=== PATIENT | female | born 1955 | race Caucasian/White ===

== ENCOUNTER 2019-09-07 14:50 | Emergency (ER) | payer BC ==
[~2019-09-07] VITALS: Ht 162.6 cm; Wt 89.4 kg
[~2019-09-07 14:50] MED LIST: IBUPROFEN PRN
[2019-09-07 15:06] VITALS: BP 147/72
[2019-09-07 15:58] LABS: BASOPHILS # (AUTO) 0.1 K/uL (0.00-0.22); BASOPHILS % (AUTO) 0.7 % (0.0-2.0); EOSINOPHILS # (AUTO) 0.2 K/uL (0-0.4); EOSINOPHILS % (AUTO) 2.3 % (0.0-4.0); HEMATOCRIT 39.8 % (36-48); HEMOGLOBIN 13.2 g/dL (12.0-16.0); LYMPHOCYTES % (AUTO) 38.2 % (20.5-51.1); MEAN CORPUSCULAR HEMOGLOBIN 29 pg (27-31); MEAN CORPUSCULAR HGB CONC 33 g/dL (33-37); MEAN CORPUSCULAR VOLUME 88.4 fL (80-94); MONOCYTES # (AUTO) 0.5 K/uL (0.8-1.0); MONOCYTES % (AUTO) 5.9 % (1.7-9.3); NEUTROPHILS # (AUTO) 4.2 K/uL (1.8-7.7); NEUTROPHILS % (AUTO) 52.9 % (42.2-75.2); PLATELET COUNT (AUTO) 259 K/uL (140-450); RED BLOOD CELL COUNT(AUTO) 4.51 MIL/uL (4.20-5.40); RED CELL DISTRIBUTION WIDTH 13.8 % (11.6-13.7)
[2019-09-07 16:10] LABS: ANION GAP 11.6 (8-16); CARBON DIOXIDE 28.8 mmol/L (21-32); CREATININE 0.5 mg/dL (0.6-1.3); POTASSIUM 3.4 mmol/L (3.5-5.1)
--- NOTE | 2019-09-07 16:14 | NUR ---
PATIENT AMBULATED TO BED 6
[2019-09-07 16:17] LABS: ALBUMIN 4.1 g/dL (3.4-5.0); TOTAL BILIRUBIN 0.6 mg/dL (0.0-1.0)
[2019-09-07] MEDS ORDERED: ONDANSETRON 4 MG ODT PO ONE (16:35)
[2019-09-07] MEDS ORDERED: HYDROcodone/APAP 5/325 MG 1 TAB TAB PO ONE (16:35)
--- NOTE | 2019-09-07 17:01 | NUR ---
Patient taken to CT scan via wheelchair by tech.
[2019-09-07 19:02] VITALS: BP 116/73
--- NOTE | 2019-09-07 19:02 | NUR ---
Patient discharged with v/s stable. Written and verbal after care instructions given and explained. Patient alert, oriented and verbalized understanding of instructions. Ambulatory with steady gait. All questions addressed prior to discharge. ID band removed. Patient advised to follow up with PMD. Rx of [place] and Zofran ODT given. Patient educated on indication of medication including possible reaction and side effects. Opportunity to ask questions provided and answered.
[2019-09-07 20:39] LABS: APPEARANCE,URINE HAZY (CLEAR); BILIRUBIN,URINE NEGATIVE (NEGATIVE); BLOOD, URINE NEGATIVE (NEGATIVE); COLOR,URINE YELLOW (YELLOW); LEUKOCYTE ESTERASE ,URINE TRACE (NEGATIVE); NITRITE, URINE POSITIVE (NEGATIVE); PH,URINE 6.5 (5.0-9.0); UGLUCOSE NEGATIVE (NEGATIVE)
[2019-09-07 21:02] LABS: RBC,URINE NONE SEEN /HPF (0-5); WBC,URINE 0-5 /HPF (0-5)
== END 2019-09-07 19:02 | disposition home or self-care (01) ==
LOC: MED 14:50
DX: R10.84 Generalized abdominal pain (principal); Z90.49 Acquired absence of other specified parts of digestive tract; Z90.710 Acquired absence of both cervix and uterus; Z79.1 Long term (current) use of non-steroidal anti-inflammatories (NSAID)
CPT/HCPCS: 36415; 74176; 80053; 81001; 83690; 85025; 87086; 93005; 99284; Q0162

== ENCOUNTER 2019-09-21 06:28 | Emergency (ER) | payer BC ==
[~2019-09-21] VITALS: Ht 162.6 cm; Wt 86.2 kg
[2019-09-21 06:38] VITALS: BP 122/57
[2019-09-21] MEDS ORDERED: MAGNESIUM CITRATE 300 ML BTL PO ONE (06:40)
--- NOTE | 2019-09-21 06:43 | NUR ---
63 Y/O FEMALE C/O RECTAL PAIN. PT STATES HER LAST NORMAL BM WAS SATURDAY AFTERNOON. HARD, SMALL BM YESTERDAY WHICH CAUSED INCREASED RECTAL PAIN. PT C/O 10/10 SHARP INTERMITTENT PAIN, INCREASED WHEN TRYING TO DEFICATE. PT STATES SHE TOOK STOOL SOFTENER AT 2100 WITH NO BOWEL MOVEMENT. PT LAYING IN BED POSITIONED FOR COMFORT. BED LOCKED AND IN LOW POSITION. VSS. MEDHX; DM, HLD, ANXIETY ALLERGIES: NKA
[2019-09-21] MEDS ORDERED: NACL 0.9% 1,000 ML IV ONE (06:50)
[2019-09-21] MEDS ORDERED: MORPHINE SULFATE 4 MG/ML SYR IVP ONE (06:50)
--- NOTE | 2019-09-21 06:56 | NUR ---
XRAY AT BEDSIDE
--- NOTE | 2019-09-21 07:06 | NUR ---
received report from suleman kelly. will cont care at this time.
--- NOTE | 2019-09-21 07:06 | NUR ---
REPORT GIVEN TO HELEN GILL. TRANSFER OF CARE AT THIS TIME.
[2019-09-21 07:15] LABS: APPEARANCE,URINE HAZY (CLEAR); BILIRUBIN,URINE NEGATIVE (NEGATIVE); BLOOD, URINE NEGATIVE (NEGATIVE); COLOR,URINE YELLOW (YELLOW); LEUKOCYTE ESTERASE ,URINE 1+ (NEGATIVE); NITRITE, URINE POSITIVE (NEGATIVE); UGLUCOSE NEGATIVE (NEGATIVE)
[2019-09-21 07:15] LABS: BASOPHILS # (AUTO) 0.1 K/uL (0.00-0.22); BASOPHILS % (AUTO) 0.7 % (0.0-2.0); EOSINOPHILS # (AUTO) 0.1 K/uL (0-0.4); EOSINOPHILS % (AUTO) 0.9 % (0.0-4.0); HEMATOCRIT 41.7 % (36-48); HEMOGLOBIN 14.2 g/dL (12.0-16.0); LYMPHOCYTES # (AUTO) 2.1 K/uL (2.5-16.5); MEAN CORPUSCULAR HEMOGLOBIN 30 pg (27-31); MEAN CORPUSCULAR HGB CONC 34 g/dL (33-37); MEAN CORPUSCULAR VOLUME 87.9 fL (80-94); MONOCYTES # (AUTO) 0.5 K/uL (0.8-1.0); MONOCYTES % (AUTO) 5.9 % (1.7-9.3); NEUTROPHILS # (AUTO) 5.7 K/uL (1.8-7.7); NEUTROPHILS % (AUTO) 67.5 % (42.2-75.2); PLATELET COUNT (AUTO) 242 K/uL (140-450); RED BLOOD CELL COUNT(AUTO) 4.74 MIL/uL (4.20-5.40); RED CELL DISTRIBUTION WIDTH 13.7 % (11.6-13.7); WHITE BLOOD COUNT (AUTO) 8.4 K/uL (4.8-10.8)
[2019-09-21 07:29] LABS: RBC,URINE 0 /HPF (0-5)
--- NOTE | 2019-09-21 07:51 | NUR ---
[facility]
--- NOTE | 2019-09-21 08:02 | NUR ---
pt returned back from ct via wheelchair.
[2019-09-21 09:01] LABS: ANION GAP 10.2 (8-16); CARBON DIOXIDE 31.7 mmol/L (21-32); CREATININE 0.6 mg/dL (0.6-1.3); POTASSIUM 3.9 mmol/L (3.5-5.1); TOTAL BILIRUBIN 0.8 mg/dL (0.0-1.0)
[2019-09-21 09:33] VITALS: BP 122/57
--- NOTE | 2019-09-21 09:33 | NUR ---
Patient discharged with v/s stable. Written and verbal after care instructions given and explained. Patient alert, oriented and verbalized understanding of instructions. Ambulatory with steady gait. All questions addressed prior to discharge. ID band removed. Patient advised to follow up with PMD. Rx of glycerin and magnesium citrate given. Patient educated on indication of medication including possible reaction and side effects. Opportunity to ask questions provided and answered.
--- NOTE | 2019-09-23 17:34 | NUR ---
SPOKE WITH PATIENT. VERBALZIED UNDERSTAND FRO NEED TO SPORT INTERN RX. CALL TO PHARMACY, SPOKE WITH CLAIR COOLEY. RX CONFIRMED VIA PHONE.
== END 2019-09-21 09:33 | disposition home or self-care (01) ==
LOC: MED 06:28
DX: K59.00 Constipation, unspecified (principal); K62.5 Hemorrhage of anus and rectum; K57.30 Diverticulosis of large intestine without perforation or abscess without bleeding; E11.9 Type 2 diabetes mellitus without complications; F41.9 Anxiety disorder, unspecified; E78.5 Hyperlipidemia, unspecified; Z90.49 Acquired absence of other specified parts of digestive tract; Z79.1 Long term (current) use of non-steroidal anti-inflammatories (NSAID)
CPT/HCPCS: 36415; 74018; 74176; 80053; 81001; 82948; 85025; 87086; 87186; 96374; 99284; J2270; J7030; Q0092

== ENCOUNTER 2019-09-23 09:43 | Emergency (ER) | payer BC ==
[~2019-09-23] VITALS: Ht 162.6 cm; Wt 87.5 kg
--- NOTE | 2019-09-23 09:49 | NUR ---
Patient ambulated to bed 12 with family. RN evaluating patient at bedside.
[2019-09-23 09:54] VITALS: BP 125/80
--- NOTE | 2019-09-23 10:08 | NUR ---
63 Y/O FEMALE PRESENTED WITH C/C OF RECTAL PAIN X2 DAYS. PER PT WAS SEEN SATURDAY IN [facility] AND SENT HOME WITH STOOL SOFTENERS DUE TO CONSTIPATION, PER PT DID HAVE A BM YESTERDAY BLOODY. PT CURRENT PAIN 10/10, SHARP ON RECTAL AREA. PT NKA. MEDICAL HX OF DM. DENIES N/V/D. SIDE RAIL X1. AT BEDSIDE.
--- NOTE | 2019-09-23 10:11 | NUR ---
DR OTTO AT BEDSIDE
--- NOTE | 2019-09-23 10:12 | NUR ---
Female Training Mgr accompanied female patient for Rectal Exam WITH DR OTTO
[2019-09-23 10:33] VITALS: BP 125/80
--- NOTE | 2019-09-23 10:33 | NUR ---
Patient discharged with v/s stable. Written and verbal after care instructions given and explained. Patient alert, oriented and verbalized understanding of instructions. Ambulatory with steady gait. All questions addressed prior to discharge. ID band removed. Patient advised to follow up with PMD. Rx of EPSOM SALT; LIDOCAINE; HYDROCORTISONE; METAMUCIL given. Patient educated on indication of medication including possible reaction and side effects. Opportunity to ask questions provided and answered.
== END 2019-09-23 10:33 | disposition home or self-care (01) ==
LOC: MED 09:43
DX: K60.2 Anal fissure, unspecified (principal); E11.9 Type 2 diabetes mellitus without complications; Z90.49 Acquired absence of other specified parts of digestive tract; Z90.710 Acquired absence of both cervix and uterus
CPT/HCPCS: 99282

== ENCOUNTER 2019-09-27 04:45 | Inpatient (IN) | payer BC ==
[~2019-09-27] VITALS: Ht 162.6 cm; Wt 68.0 kg
[2019-09-27 04:54] VITALS: BP 150/72
--- NOTE | 2019-09-27 04:54 | NUR ---
PT TAKEN TO BED 8
--- NOTE | 2019-09-27 05:03 | NUR ---
PATIENT SAID TO HAVE BEEN TO OUR ED ON THE 09/21/2019 WITH THE SAME COMPLAINT OF RECTAL BLEEDING. PATIENT ACCOMPANIED BY A FAMILY MEMBER .V/S TAKEN AND RECORDED WNL. PATIENT MADE COMFORTABLE. WILL CONTINUE TO MONITOR PATIENT.
--- NOTE | 2019-09-27 05:23 | NUR ---
Dr. Scales examining patient.
[2019-09-27] MEDS ORDERED: NACL 0.9% 1,000 ML IV ONE (05:30)
[2019-09-27] MEDS ORDERED: KETOROLAC 30 MG/ML VIAL IVP ONE (05:30)
[2019-09-27] MEDS ORDERED: ONDANSETRON 4 MG/2 ML VIAL IVP ONE (05:30)
--- NOTE | 2019-09-27 05:30 | NUR ---
IV ACCESS ESTABLISHED, IVF STARTED AND OTHER ORDEREDMEDICATIONS WERE GIVEN. WILL MONITOR PATIENT.
[2019-09-27 06:19] LABS: BASOPHILS % (AUTO) 0.4 % (0.0-2.0); EOSINOPHILS # (AUTO) 0.1 K/uL (0-0.4); EOSINOPHILS % (AUTO) 0.5 % (0.0-4.0); HEMATOCRIT 41.4 % (36-48); HEMOGLOBIN 13.9 g/dL (12.0-16.0); LYMPHOCYTES # (AUTO) 1.4 K/uL (2.5-16.5); MEAN CORPUSCULAR HEMOGLOBIN 30 pg (27-31); MEAN CORPUSCULAR HGB CONC 34 g/dL (33-37); MEAN CORPUSCULAR VOLUME 88.3 fL (80-94); MONOCYTES # (AUTO) 0.7 K/uL (0.8-1.0); MONOCYTES % (AUTO) 6.7 % (1.7-9.3); NEUTROPHILS % (AUTO) 78.4 % (42.2-75.2); PLATELET COUNT (AUTO) 284 K/uL (140-450); RED BLOOD CELL COUNT(AUTO) 4.69 MIL/uL (4.20-5.40); RED CELL DISTRIBUTION WIDTH 13.8 % (11.6-13.7); WHITE BLOOD COUNT (AUTO) 10.2 K/uL (4.8-10.8)
[2019-09-27 06:36] LABS: PROTHROMBIN TIME 9.9 secs (10.8-13.4)
--- NOTE | 2019-09-27 06:51 | NUR ---
PT RETURN FROM CT
[2019-09-27 07:01] LABS: CREATININE 0.7 mg/dL (0.6-1.3); TOTAL BILIRUBIN 0.7 mg/dL (0.0-1.0)
--- NOTE | 2019-09-27 07:34 | NUR ---
PT RESTING IN BED. FAMILY AT BEDSIDE. PT STATED PAIN RELIEVED. NO S/S OF RESPIRATORY DISTRESS NOTED. VITALS TAKEN IN NORMAL RANGE.
--- NOTE | 2019-09-27 07:45 | NUR ---
PATIENT CONTINUED TO REST WELL. REPORT WAS GIVEN TO THE ON COMING STAFF FOR CONTINUED EXPERT CARE.
[2019-09-27] MEDS ORDERED: MILD SOAP AND WATER MC STA (08:29)
--- NOTE | 2019-09-27 08:55 | NUR ---
STARTED SOAP AND WATER ENEMA. PT TOLERATED WELL. NO BLEEDING NOTED. INSTRUCTIONS GIVEN. PT AND PT'S VERBALIZED UNDERSTANDING.
--- NOTE | 2019-09-27 09:05 | NUR ---
PT UNABLE TO RETAIN SOAP WATER. TOLD PT TRY HER BEST TO RETAIN UNTIL SHE FEELS SHE HAS TO GO TOILET. BEDPAN OFFERED TO PT.
--- NOTE | 2019-09-27 09:20 | NUR ---
SOME WATERY BM NOTED IN BEDPAN. NOTIFIED .
--- NOTE | 2019-09-27 09:50 | NUR ---
SOAP ENEMA GIVEN TO PT AGAIN PER ORDER. EDUCATION GIVEN, WILL F/U
--- NOTE | 2019-09-27 10:25 | NUR ---
WATERY BM NOTED. CLEANED PT. PT STATED PAIN RELIEVED AFTER SOAP ENEMA.
--- NOTE | 2019-09-27 13:00 | NUR ---
ASKED DR. MANCINI REGARDING DIET. DR. EAST STATED KEEP PT NPO.
--- NOTE | 2019-09-27 15:00 | NUR ---
PT AMBULATED TO BATHROOM WITHOUT DIFFICULTY.
--- NOTE | 2019-09-27 16:30 | NUR ---
PT RESTING IN BED. NO DISCOMFORT NOTED.
--- NOTE | 2019-09-27 19:30 | NUR ---
RECEIVED PATIENT FROM ED. BESIDE REPORT GIVEN BY LAMIN. PATIENT IS AMBULATORY. NO SOB OR DISTRESS NOTED. ON ROOM AIR. IV ACCESS ON LEFT HAND 20 GAUGE, PATENT AND INTACT. SKIN IS INTACT. BED IN LOW. INITIAL ASSESSMENT DONE. INITIAL VITAL SIGNS TAKEN. PT HAS GLASSES BUT WANTS THEM AT BEDSIDE. PATIENT IS ORIENTED TO ROOM. CALL LIGHT WITHIN PATIENT REACH. WILL CONTINUE TO MONITOR PATIENT.
--- NOTE | 2019-09-27 23:15 | NUR ---
Patient will be admitted to [facility] [place] . Admited to Med/Surg. Will go to room 105 B. Belongings list completed. Report to HELEN MONTALVO .
--- NOTE | 2019-09-27 23:45 | NUR ---
SPOKE TO DR. RAO FOR ORDERS. NEW ORDERS MADE AND CARRIED OUT FOR NS TO RUN AT 100MLS/HR AND ACCUCHECKS WITH INSULIN SLIDING SCALE.
[2019-09-28 00:20] VITALS: BP 122/51
[2019-09-28] MEDS ORDERED: INSULIN LISPRO SLIDING SCALE 100 UNITS/ML VIAL SUBQ PRN (00:25)
[2019-09-28] MEDS: NACL 0.9% 1,000 ML IV SCH ×3 (00:42→21:00)
--- NOTE | 2019-09-28 00:51 | NUR ---
SPOKE TO DR. RAO. NEW ORDERS MADE AND CARRIED OUT FOR PRN MORPHINE 2MG Q4HRS FOR MODERATE PAIN IVP, AND PRN DILAUDID 2MG Q4HRS FOR SEVERE PAIN IVP. NO DIET ORDERED AT THIS TIME.
[2019-09-28] MEDS ORDERED: HYDROmorphone PFS 2 MG/ML SYR IVP PRN (01:10)
[2019-09-28] MEDS ORDERED: MORPHINE SULFATE 2 MG/ML SYR IVP PRN ×2 (01:10→11:20)
--- NOTE | 2019-09-28 02:35 | NUR ---
ROUNDS DONE. VISIBLE CHEST RISE AND FALL NOTED. WILL CONTINUE TO MONITOR PATIENT.
--- NOTE | 2019-09-28 05:00 | NUR ---
ROUNDS DONE. VISIBLE CHEST RISE AND FALL NOTED. WILL CONTINUE TO MONITOR PATIENT.
[2019-09-28] MEDS: BLOOD GLUCOSE MONITORING 1 DEV DEV FS SCH ×5 (06:53→21:46)
--- NOTE | 2019-09-28 07:06 | NUR ---
BLOOD GLUCOSE OF 96. NO INSULIN COVERAGE NEEDED.
--- NOTE | 2019-09-28 07:15 | NUR ---
PT IN STABLE CONDITION. CALL LIGHT WITHIN PATIENT REACH. ENDORSED TO IGGY FOR CONTINUITY OF CARE.
--- NOTE | 2019-09-28 07:20 | NUR ---
RECEIVED BEDSIDE REPORT FROM NIGHTSHIFT NURSE. PT LYING IN BED. ABLE TO MAKE NEEDS KNOWN. NO COMPLAINTS AT THIS TIME. SKIN WARM AND DRY TO TOUCH. IV SITE LEFT HAND 20G. IV SITE CLEAN, DRY, AND INTACT WITH NO REDNESS OR COMPLICATIONS. RESPIRATIONS EVEN AND UNLABORED WITH NO SOB OR RESPIRATORY DISTRESS. SAFETY MEASURES: HOB ELEVATED, BED IN LOWEST POSITION, CALL LIGHT WITHIN REACH. WILL CONTINUE TO MONITOR
[2019-09-28 08:00] VITALS: BP 123/62
--- NOTE | 2019-09-28 08:53 | NUR ---
PATIENT HAS BEEN SCREENED AND CATEGORIZED MODERATE NUTRITION RISK. PATIENT WILL BE SEEN WITHIN 3-5 DAYS OF ADMISSION. 09/30/19 10/02/[address]
--- NOTE | 2019-09-28 09:05 | NUR ---
PATIENT IS RESTING IN BED. ABLE TO MAKE NEEDS KNOWN. NO COMPLAINTS OR CONCERNS AT THIS TIME. RESPIRATIONS EVEN AND UNLABORED WITH NO SOB OR RESPIRATORY DISTRESS. SAFETY MEASURES: HOB ELEVATED, BED IN LOWEST POSITION, CALL LIGHT WITHIN REACH, AND BED ALARM ACTIVATED. WILL CONTINUE TO MONITOR
--- NOTE | 2019-09-28 10:33 | NUR ---
PATIENT IS RESTING IN BED. ABLE TO MAKE NEEDS KNOWN. NO COMPLAINTS OR CONCERNS. RESPIRATIONS EVEN AND UNLABORED WITH NO SOB OR RESPIRATORY DISTRESS. SKIN WARM AND DRY TO TOUCH. SAETY MEASURES: HOB ELEVATED, BED IN LOWEST POSITION, CALL LIGHT WITHIN REACH. WILL CONTINUE TO MONITOR
--- NOTE | 2019-09-28 11:01 | NUR ---
PATIENT COMPLAINED THAT SHE HAS 9/10 PAIN AROUND HER RECTAL AREA, SHE SAID "IT FEELS SHARP." REPOSITIONED PATIENT AND ASSESSED PATIENT'S RECTAL AREA, NO SIGN OF BLEEDING. MEDICATED WITH PRN PAIN MED, MED ED PROVIDED AND PATIENT TOLERATED WELL. PATIENT IS TALKING ON THE PHONE TO JIHAN. NO SIGNS OF DISTRESS NOTED. SAFETY MEASURES IN PLACE. BED IN LOW POSITION AND CALL LIGHT WITHIN REACH. INSTRUCTED PATIENT TO USE THE CALL LIGHT FOR ANY ASSISTANCE AND PATIENT WAS AWARE.
[2019-09-28] MEDS ORDERED: POTASSIUM CHLORIDE 10 MEQ TABER PO PRN (11:20)
[2019-09-28] MEDS ORDERED: IPRATROPIUM 0.02% 0.5 MG/2.5 ML NEBU INH PRN (11:20)
[2019-09-28] MEDS ORDERED: ACETAMINOPHEN 650 MG SUPP RC PRN (11:20)
[2019-09-28] MEDS ORDERED: DOCUSATE SODIUM 250 MG GELCAP PO PRN (11:20)
[2019-09-28] MEDS ORDERED: ZOLPIDEM 5 MG TAB PO PRN (11:20)
[2019-09-28] MEDS ORDERED: BISACODYL 10 MG SUPP RC PRN (11:20)
[2019-09-28] MEDS ORDERED: ONDANSETRON 4 MG/2 ML VIAL IVP PRN (11:20)
[2019-09-28] MEDS ORDERED: HYDROcodone/APAP 5/325 MG 1 TAB TAB PO PRN ×2 (11:20)
[2019-09-28] MEDS ORDERED: diphenhydrAMINE 50 MG/ML VIAL IVP PRN (11:20)
[2019-09-28] MEDS ORDERED: LORazepam 2 MG/ML VIAL IVP PRN (11:20)
[2019-09-28] MEDS ORDERED: guaiFENesin DM 200/20 MG-10 ML 10 ML UDC PO PRN (11:20)
[2019-09-28] MEDS ORDERED: ALBUTEROL 0.083% 2.5 MG/3 ML NEBU INH PRN (11:20)
[2019-09-28] MEDS ORDERED: MAGNESIUM OXIDE 400 MG TAB PO PRN (11:20)
[2019-09-28] MEDS ORDERED: ALUMINUM HYD/MAG/SIMETHICONE 30 ML UDC PO PRN (11:20)
[2019-09-28] MEDS ORDERED: cloNIDine 0.1 MG TAB PO PRN (11:20)
[2019-09-28] MEDS ORDERED: ACETAMINOPHEN 325 MG TAB PO PRN (11:20)
[2019-09-28] MEDS ORDERED: SODIUM PHOSPHATE 118 ML ENEM RC PRN ×2 (11:20→13:15)
[2019-09-28] MEDS ORDERED: MAG SULF 2000 MG/WATER PREMIX 50 ML IV PRN (11:20)
[2019-09-28] MEDS ORDERED: BOWEL EVACUANT DRINK 4,000 ML PDS PO SCH (12:00)
--- NOTE | 2019-09-28 12:19 | NUR ---
ADMINISTERED MEDICATION PRESCRIBED PER MD ORDER. EDUCATED MEDICATION REGIMEN TO PATIENT. PATIENT ABLE TO VERBALIZE UNDERSTANDING AND TEACH BACK. PATIENT TOLERATED WELL AND SAID, "I WILL WORK ON IT SLOWLY WHENEVER I AM AWAKE." NO COMMENTS OR CONCERNS AT THIS TIME. PATIENT IS RESTING IN BED AT THIS TIME. NO SIGNS OF DISTRESS AT THIS MOMENT.
--- NOTE | 2019-09-28 13:15 | NUR ---
DR MENDOZA IS ASSESSING AND TALKING TO PATIENT AT BEDSIDE. NO SIGNS OF DISTRESS NOTED. SAFETY MEASURES IN PLACE.
--- NOTE | 2019-09-28 14:05 | NUR ---
PATIENT LYING IN BED WITH GRANDDAUGHTER AT BEDSIDE. ADMINISTERED MEDICATION PRESCRIBED PER MD ORDER. EDUCATED PATIENT ON MEDICATION REGIMEN. PATIENT ABLE TO VERBALIZE UNDERSTANDING AND TEACH BACK. PATIENT TOLERATED WELL. NO COMPLAINTS OR CONCERNS AT THIS TIME.
--- NOTE | 2019-09-28 14:12 | NUR ---
PATIENT COMPLAINED THAT SHE WAS FEELING NAUSOUS. PRN ZOFRAN WAS GIVEN PRESCRIBED PER MD ORDER. PATIENT TOLERATED WELL. MEDICATION EDUCATION WAS PROVIDED. PT ABLE TO VERBALIZE UNDERSTANDING AND TEACH BACK.
--- NOTE | 2019-09-28 15:21 | NUR ---
DISCHARGE PLANNIN63 Y/O FEMALE PATIENT FROM HOME, WHO CAME IN DUE TO SEVERE CONSTIPATION WITH ANAL PAIN. PAST MEDICAL HISTORY INCLUDE ANAL FISSURE AND CONSTIPATION AND DM. INITIAL DIAGNOSIS OF CONSTIPATION. LABS INCLUDE WBC 10.2, H/H 13.9/41.4. CHEM [address] ABDOMEN AND PELVIS SHOWED MODERATE DISTENDED WITH STOOL, PERICOLONIC EDEMA AND INFLAMMATION MAY REFLECT COLITIS AND APPENDICITIS IS NOT EXCLUDED. NO CONSULTS AT THIS TIME. [facility]. DC PLAN PENDING ON PATIENT'S RESPONSE TO TREATMENT. Addendum: 09/29/19 at 1053 by Michelle Fisher CONTACTED AZALIA MCGEE OF [facility] AT [phone], INFORMED HER THAT THE PATIENT IS FOR POSSIBLE DC TODAY. SHE STATED SHE WILL CALL ME BACK FOR MORE INFORMATION. CONTACTED AZALIA NICOLE OF [facility] AT [phone] [id number], INFORMED HER THAT THE PATIENT IS FOR POSSIBLE DC TODAY. SHE STATED THAT PATIENT NEEDS TO BE DC TODAY. I TOLD HER THAT WE ARE JUST WAITING FOR THE PHYSICIAN TO MAKE HIS ROUNDS. SHE STATED THEY WILL ONLY AUTHORIZE FOR OBS. CHARGE NURSE MADE AWARE.
--- NOTE | 2019-09-28 15:38 | NUR ---
PATIENT RESTING IN BED. NO CONCERNS OR COMPLAINTS AT THIS TIME. ABLE TO MAKE NEEDS KNOWN. RESPIRATIONS EVEN AND UNLABORED WITH NO SOB OR RESPIRATORY DISTRESS. SAFETY MEASURES IN PLACE. WILL CONTINUE TO MONITOR
[2019-09-28 16:00] VITALS: BP 123/62
--- NOTE | 2019-09-28 16:07 | NUR ---
PATIENT HAS FAMILY AT BEDSIDE AND IS RESTING INN BED. NO COMPLAINTS OR CONCERNS AT THIS TIME. SKIN WARM AND DRY TO TOUCH. RESPIRATIONS EVEN AND UNLABORED. NO DISTRESS AT THIS MOMENT. WILL CONTINUE TO MONITOR
--- NOTE | 2019-09-28 17:46 | NUR ---
PATIENT AWAKE AND TALKING TO VISITOR AT BEDSIDE. DENIED PAIN, SOB, AND NAUSEA AT THIS TIME. NO SIGNS OF DISTRESS NOTED. PATIENT SAID " I HAVE PASS GAS SEVERAL TIMES, BUT NO POO YET." SAFETY MEASURES IN PLACE. BED IN LOW POSITION AND CALL LIGHT WITHIN REACH. INSTRUCTED PATIENT TO USE THE CALL LIGHT FOR ANY ASSISTANCE AND PATIENT WAS AWARE.
--- NOTE | 2019-09-28 18:41 | NUR ---
ADMINISTERED SITZ BATH AND ENEMA PRESCRIBED PER MD ORDER. PATIENT TOLERATED WELL. EDUCATED PATIENT ON SITZ BATH AND ENEMA REGIME. PATIENT ABLE TO VERBALIZE UNDERSTANDING AND TEACH BACK. SAFETY MEASURES: HOB ELEVATED, BED IN LOWEST POSITION, BED ALARM ACTIVATED, CALL LIGHT WITHIN REACH. WILL CONTINUE TO MONITOR
--- NOTE | 2019-09-28 19:04 | NUR ---
ENDORSED TO NIGHTSHIFT AT BEDSIDE. PATIENT IS RESTING IN BED WITH FAMILY AT BEDSIDE. ABLE TO MAKE NEEDS KNOWN. RESPIRATIONS EVEN AND UNLABORED WITH NO SOB OR RESPIRATORY DISTRESS. SAFETY MEASURES: BED IN LOWEST POSITION, HOB ELEVATED, CALL LIGHT WITHIN REACH. PATIENT IS STABLE.
--- NOTE | 2019-09-28 19:05 | NUR ---
RECEIVED BEDSIDE REPORT FROM AM SHIFT NURSE. PATIENT IS LYING IN BED AWAKE AND ALERT. NO SOB OR DISTRESS NOTED. ON ROOM AIR.IV ACCESS ON LEFT AC 20 GAUGE, PATENT AND INTACT. INITIAL ASSESSMENT DONE. BED IN LOW. PT IS AMBULATORY. BOARD UPDATED. WILL CONTINUE TO MONITOR PATIENT.
--- NOTE | 2019-09-28 21:46 | NUR ---
BLOOD GLUCOSE RESULT OF 96. NO INSULIN COVERAGE NEEDED AT THIS TIME. WILL CONTINUE TO MONITOR PATIENT.
[2019-09-28 23:23] VITALS: BP 119/54
--- NOTE | 2019-09-28 23:45 | NUR ---
ROUNDS DONE. VISIBLE CHEST RISE AND FALL NOTED. CALL LIGHT WITHIN PATIENT REACH. WILL CONTINUE TO MONITOR PATIENT.
--- NOTE | 2019-09-29 01:30 | NUR ---
ADMINISTERED SITZ BATH AND ENEMA PER MD ORDER. PATIENT TOLERATING SITZ BATH AND ENEMA WELL. NO DISTRESS NOTED. WILL CONTINUE TO MONITOR PATIENT.
--- NOTE | 2019-09-29 02:32 | NUR ---
ROUNDS DONE. PATIENT ASSISTED TO RESTROOM AT THIS TIME. PATIENT DENIES PAIN AT THIS TIME. WILL CONTINUE TO MONITOR PATIENT.
[2019-09-29] MEDS: NACL 0.9% 1,000 ML IV SCH (02:42)
--- NOTE | 2019-09-29 05:06 | NUR ---
IV SITE DISLODGED. NEW IV ACCESS ON RIGHT HAND 22 GAUGE. PATENT AND INTACT. WILL CONTINUE TO MONITOR PATIENT.
--- NOTE | 2019-09-29 06:30 | NUR ---
PATIENT WITH BLOOD GLUCOSE RESULT OF 100. NO INSULIN COVERAGE NEEDED.
[2019-09-29] MEDS: BLOOD GLUCOSE MONITORING 1 DEV DEV FS SCH ×2 (06:59→12:15)
--- NOTE | 2019-09-29 07:10 | NUR ---
PT IN STABLE CONDITION. CALL LIGHT WITHIN PATIENT REACH. ENDORSED TO IGGY FOR CONTINUITY OF CARE.
--- NOTE | 2019-09-29 07:15 | NUR ---
RECEIVED BEDSIDE REPORT FROM NIGHTSHIFT NURSE. PATIENT LYING IN BED. ABLE TO MAKE NEEDS KNOWN. NO COMMENTS OR CONCERNS AT THIS TIME. RESPIRATIONS EVEN AND UNLABORED WITH NO SOB OR RESPIRATORY DISTRESS. SKIN WARM AND DRY TO TOUCH. IV SITE IN RIGHT HAND 22G. CLEAN, DRY, AND INTACT. SAFETY MEASURES IN PLACE: HOB ELEVATED, BED IN LOWEST POSITION, AND CALL LIGHT WITHIN REACH. WILL CONTINUE TO MONITOR
--- NOTE | 2019-09-29 07:45 | NUR ---
DR MENDOZA IS TALKING ANS ASSESSING PATIENT. PER DR MENDOZA, CHANGE PATIENT DIET FROM NPO TO FULL LIQUID. REPEATED AND CONFIRMED WITH DR MENDOZA. DR MENDOZA ALSO SAID CHANGED SITZ BATH AND SOAP ENEMA TO PRN SINCE PATIENT GOT 3 TREATMENTS AND WAS ABLE TO HAVE BM. WILL INPUT ORDER ACCORDINGLY.
[2019-09-29 08:00] VITALS: BP 112/47
--- NOTE | 2019-09-29 09:56 | NUR ---
PATIENT IS AWAKE AND RESTING ON BED. DENIED PAIN, SOB, AND DIZZINESS. 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 SAFETY MEASURES IN PLACE. BED IN LOW POSITION AND CALL LIGHT WITHIN REACH. INSTRUCTED PATIENT TO USE THE CALL LIGHT FOR ANY ASSISTANCE AND PATIENT WAS AWARE.
--- NOTE | 2019-09-29 10:10 | NUR ---
DR ROMANO IS TALKING TO PATIENT AT BEDSIDE. NO SIGNS OF DISTRESS NOTED. SAFETY MEASURES IN PLACE.
--- NOTE | 2019-09-29 11:10 | NUR ---
INFORMED PATIENT THAT SHE WILL BE DISCHARGE FROM THE HOSPITAL TODAY AND PATIENT WAS AWARE. PER PATIENT, HER FAMILY WILL ENVIRONMENTAL RESEARCH SCIENTIST AFTER LUNCH. SHE WILL CONTACT THEM. PATIENT IS RESTING ON BED AT THIS TIME. NO SIGNS OF DISTRESS NOTED. SAFETY MEASURES IN PLACE.
[2019-09-29 11:33] VITALS: BP 112/47
--- NOTE | 2019-09-29 12:15 | NUR ---
PATIENT IS EATING LUNCH ON BED AT THIS TIME. NO SIGNS OF DISTRESS NOTED. AWAITING FOR FAMILY TO ARRIVE FOR DC.
--- NOTE | 2019-09-29 12:57 | NUR ---
PATIENT SITTING ON THE SIDE OF THE BED WITH FAMILY PRESENT. RESPIRATIONS EVEN AND UNLABORED WITH NO SOB OR RESPIRATORY DISTRESS. SKIN WARM AND DRY TO TOUCH. NO COMMENTS OR CONCERNS AT THIS TIME. PATIENT IS AWARE OF DISCHARGE. DISCHARGE INSTRUCTIONS WERE GONE OVER WITH PATIENT. PATIENT UNDERSTOOD AND VERBALIZED UNDERSTANDING. NO COMMENTS OR CONCERNS. INSTRUCTED PATIENT TO VISIT ED FOR ANY SIGNS OF DISTRESS, SUCH SOB, FEVER, CHILLS, PAIN, OR SOB. INSTRUCTED TO FOLLOW UP WITH HER PCP. PATIENT DECLINED THE PNA AND FLU VACCINE. PATIENT ABLE TO VERBALIZE UNDERSTANDING. ID BANDS WERE REMOVED. IV CANNULA INTACT AND REMOVED. PROVIDED PATIENT WITH PRESCRIPTION AND WORK NOTE. ASSISTED PATIENT TO THE LOBBY WITH GRANDDAUGHTER. PATIENT
== END 2019-09-29 12:57 | disposition home or self-care (01) | DRG 392 ==
LOC: MED 04:45 → MTU 19:51
PROVIDERS: ADMIT Hospitalist; ATTEND Hospitalist
DX: K59.00 Constipation, unspecified (principal); K60.2 Anal fissure, unspecified; E11.9 Type 2 diabetes mellitus without complications; I10 Essential (primary) hypertension; K62.89 Other specified diseases of anus and rectum; Z90.710 Acquired absence of both cervix and uterus; Z90.49 Acquired absence of other specified parts of digestive tract
CPT/HCPCS: 36415; 80053; 82948; 85025; 85610; 85730; 87081; 96361; 96374; 96375; 99285; J1170; J1815; J1885; J2270; J2405

== ENCOUNTER 2020-05-31 19:19 | Emergency (ER) | payer BC ==
[~2020-05-31] VITALS: Ht 157.5 cm; Wt 82.1 kg
[2020-05-31 19:25] VITALS: BP 150/79
--- NOTE | 2020-05-31 19:30 | NUR ---
PT AMBULATED TO BED #5
--- NOTE | 2020-05-31 19:50 | NUR ---
Dr. Scales examining patient.
[2020-05-31] MEDS ORDERED: NACL 0.9% 500 ML IV ONE (19:52)
[2020-05-31] MEDS ORDERED: KETOROLAC 30 MG/ML VIAL IVP ONE (19:55)
[2020-05-31] MEDS ORDERED: PANTOPRAZOLE 40 MG INJ VIAL IVP ONE (19:55)
[2020-05-31] MEDS ORDERED: ONDANSETRON 4 MG/2 ML VIAL IVP ONE (19:55)
--- NOTE | 2020-05-31 20:00 | NUR ---
X-Ray at bedside.
--- NOTE | 2020-05-31 20:01 | NUR ---
64 Y/O FEMALE PRESENTS TO ER WITH C/O BURNING ABDOMINAL PAIN X4 QUADRANTS X 1 WEEK. 05/06. PT STATES HER ABDOMEN IS TTP, AND HAS HAD BLACK COLORED BOWEL MOVEMENTS TODAY, AND YESTERDAY. SATURDAY PT STATES SHE VISUALIZED BLOOD, AND MUCOUS IN BOWEL MOVEMENT. ALSO C/O NAUSEA. DENIES DIARRHEA, VOMITING, COUGH, HEADACHES, FEVER, SOB. R/R EQUAL, AND UNLABORED. VSS. SIDE RAIL X1, BED IN LOW POSITION, WILL CONTINUE TO MONITOR. NKDA PMH: DM; HYPERLIPIDEMIA
[2020-05-31] MEDS ORDERED: cefTRIAXone 1,000 MG VIAL ONE (20:15)
[2020-05-31 20:21] LABS: BASOPHILS # (AUTO) 0.1 K/uL (0.00-0.22); BASOPHILS % (AUTO) 0.9 % (0.0-2.0); EOSINOPHILS # (AUTO) 0.1 K/uL (0-0.4); EOSINOPHILS % (AUTO) 1.7 % (0.0-4.0); HEMOGLOBIN 13.4 g/dL (12.0-16.0); LYMPHOCYTES # (AUTO) 2.6 K/uL (2.5-16.5); MEAN CORPUSCULAR HEMOGLOBIN 30 pg (27-31); MEAN CORPUSCULAR HGB CONC 34 g/dL (33-37); MEAN CORPUSCULAR VOLUME 87.8 fL (80-94); MONOCYTES # (AUTO) 0.5 K/uL (0.8-1.0); MONOCYTES % (AUTO) 6.5 % (1.7-9.3); NEUTROPHILS # (AUTO) 4.7 K/uL (1.8-7.7); NEUTROPHILS % (AUTO) 58.9 % (42.2-75.2); PLATELET COUNT (AUTO) 231 K/uL (140-450); RED BLOOD CELL COUNT(AUTO) 4.55 MIL/uL (4.20-5.40); RED CELL DISTRIBUTION WIDTH 13.9 % (11.6-13.7)
[2020-05-31 20:23] LABS: APPEARANCE,URINE CLEAR (CLEAR); BILIRUBIN,URINE NEGATIVE (NEGATIVE); BLOOD, URINE NEGATIVE (NEGATIVE); COLOR,URINE YELLOW (YELLOW); LEUKOCYTE ESTERASE ,URINE NEGATIVE (NEGATIVE); NITRITE, URINE NEGATIVE (NEGATIVE); PH,URINE 6.5 (5.0-9.0); UGLUCOSE NEGATIVE (NEGATIVE)
[2020-05-31 20:37] LABS: ALBUMIN 4.3 g/dL (3.4-5.0); ANION GAP 14.7 (8-16); CARBON DIOXIDE 24.9 mmol/L (21-32); CREATININE 0.7 mg/dL (0.6-1.3); POTASSIUM 3.6 mmol/L (3.5-5.1); TOTAL BILIRUBIN 0.5 mg/dL (0.0-1.0)
--- NOTE | 2020-05-31 21:04 | NUR ---
PT RESTING IN BED QUIETLY. R/R EQUAL, AND UNLABORED. VSS. SIDE RAIL X1, BED IN LOW POSITION, WILL CONTINUE TO MONITOR.
--- NOTE | 2020-05-31 22:11 | NUR ---
PT RESTING IN BED QUIETLY, TALKING ON CELL PHONE. R/R EQUAL, AND UNLABORED. VSS. SIDE RAIL X1, BED IN LOW POSITION, WILL CONTINUE TO MONITOR
[2020-05-31 23:12] VITALS: BP 150/79
--- NOTE | 2020-05-31 23:13 | NUR ---
Patient discharged with v/s stable. Written and verbal after care instructions given and explained. Patient alert, oriented and verbalized understanding of instructions. Ambulatory with steady gait. All questions addressed prior to discharge. ID band removed. Patient advised to follow up with PMD. Rx of TRAMADOL, AND PROTONIX given. Patient educated on indication of medication including possible reaction and side effects. Opportunity to ask questions provided and answered.
== END 2020-05-31 23:13 | disposition home or self-care (01) ==
LOC: MED 19:19
DX: K29.70 Gastritis, unspecified, without bleeding (principal); E11.9 Type 2 diabetes mellitus without complications
CPT/HCPCS: 36415; 71045; 80053; 81003; 83690; 84484; 85025; 93005; 96361; 96365; 96375; 99285; C9113; J0696; J1885; J2405; J7030

== ENCOUNTER 2020-06-03 19:15 | Emergency (ER) | payer BC ==
[~2020-06-03] VITALS: Ht 162.6 cm; Wt 81.6 kg
[2020-06-03 19:45] VITALS: BP 111/77
--- NOTE | 2020-06-03 19:52 | NUR ---
ambulated to bed 7 with steady gait
--- NOTE | 2020-06-03 19:55 | NUR ---
64 Y/O FEMALE C/O rlq, llq 5/10 abdominal pain x 4 days that is radiating to lower back. reports black colored hard stool per pt statement. +nausea TG=[id number] pmhx: DM, HLD, NKA
--- NOTE | 2020-06-03 20:00 | NUR ---
AT BEDSIDE WITH FEMALE RN
[2020-06-03] MEDS ORDERED: NACL 0.9% 1,000 ML IV ONE (20:10)
[2020-06-03] MEDS ORDERED: DICYCLOMINE HCL LIQUID 20 MG, ALUMINUM HYD/MAG/SIMETHICONE 30 ML, LIDOCAINE VISCOUS 2% ... PO ONE ×3 (20:10)
--- NOTE | 2020-06-03 20:24 | NUR ---
PT TAKEN TO CT VIA ZARINA
[2020-06-03 20:29] LABS: BASOPHILS # (AUTO) 0.1 K/uL (0.00-0.22); BASOPHILS % (AUTO) 1.2 % (0.0-2.0); EOSINOPHILS # (AUTO) 0.2 K/uL (0-0.4); EOSINOPHILS % (AUTO) 2.3 % (0.0-4.0); HEMATOCRIT 39.6 % (36-48); HEMOGLOBIN 13.3 g/dL (12.0-16.0); LYMPHOCYTES # (AUTO) 2.7 K/uL (2.5-16.5); LYMPHOCYTES % (AUTO) 38.9 % (20.5-51.1); MEAN CORPUSCULAR HEMOGLOBIN 30 pg (27-31); MEAN CORPUSCULAR HGB CONC 34 g/dL (33-37); MEAN CORPUSCULAR VOLUME 88.6 fL (80-94); MONOCYTES # (AUTO) 0.5 K/uL (0.8-1.0); MONOCYTES % (AUTO) 6.6 % (1.7-9.3); NEUTROPHILS # (AUTO) 3.5 K/uL (1.8-7.7); PLATELET COUNT (AUTO) 239 K/uL (140-450); RED BLOOD CELL COUNT(AUTO) 4.47 MIL/uL (4.20-5.40); WHITE BLOOD COUNT (AUTO) 6.9 K/uL (4.8-10.8)
[2020-06-03 20:38] LABS: APPEARANCE,URINE CLEAR (CLEAR); BILIRUBIN,URINE NEGATIVE (NEGATIVE); BLOOD, URINE NEGATIVE (NEGATIVE); LEUKOCYTE ESTERASE ,URINE NEGATIVE (NEGATIVE); NITRITE, URINE NEGATIVE (NEGATIVE); UGLUCOSE NEGATIVE (NEGATIVE)
[2020-06-03 20:43] LABS: COLOR,URINE YELLOW (YELLOW)
[2020-06-03 20:49] LABS: PROTHROMBIN TIME 10.6 secs (10.8-13.4)
[2020-06-03 20:53] LABS: ALBUMIN 4.2 g/dL (3.4-5.0); ANION GAP 12.4 (8-16); CARBON DIOXIDE 27.4 mmol/L (21-32); CREATININE 0.7 mg/dL (0.6-1.3); POTASSIUM 3.8 mmol/L (3.5-5.1); TOTAL BILIRUBIN 0.6 mg/dL (0.0-1.0)
[2020-06-03] MEDS ORDERED: LIDOCAINE VISCOUS 2% 20 ML UDC ONE ×2 (20:57→20:59)
[2020-06-03] MEDS ORDERED: ALUMINUM HYD/MAG/SIMETHICONE 30 ML UDC ONE ×2 (20:57→20:59)
[2020-06-03] MEDS ORDERED: DICYCLOMINE HCL LIQUID 10 MG/5 ML UDC ONE (20:57)
--- NOTE | 2020-06-03 21:04 | NUR ---
NANCY WASHINGTON AT BEDSIDE DOING EKG
[2020-06-03 21:10] LABS: CREATINE KINASE MB 0.8 ng/mL (0-3.6)
--- NOTE | 2020-06-03 21:46 | NUR ---
ERMD MADE AWARE HR 50, NO NEW ORDERS AT THIS TIME.
[2020-06-03 21:51] VITALS: BP 127/60
--- NOTE | 2020-06-03 21:51 | NUR ---
Patient discharged with v/s stable. Written and verbal after care instructions given and explained. Patient alert, oriented and verbalized understanding of instructions. Ambulatory with steady gait. All questions addressed prior to discharge. ID band removed. Patient advised to follow up with PMD. Rx of MYLANTA/ZOFRAN given. Patient educated on indication of medication including possible reaction and side effects. Opportunity to ask questions provided and answered.
== END 2020-06-03 21:51 | disposition home or self-care (01) ==
LOC: MED 19:15
DX: R10.84 Generalized abdominal pain (principal); R53.1 Weakness; E11.9 Type 2 diabetes mellitus without complications
CPT/HCPCS: 36415; 80053; 81003; 82550; 82553; 82948; 83690; 84484; 85025; 85610; 85730; 93005; 99285; J7030

== ENCOUNTER 2020-07-04 02:09 | Emergency (ER) | payer BC ==
[~2020-07-04] VITALS: Ht 167.6 cm; Wt 65.8 kg
--- NOTE | 2020-07-04 02:09 | NUR ---
PT SEEMA TALBOT. TAKEN TO BED 11
--- NOTE | 2020-07-04 02:10 | NUR ---
64 year old female presenting to ED with c/o llq, rlq abdominal that started x 3 hours. + n/v. denies diarrhea or constipation. pt is a/o x 4. respirations even and unlabored. heart sounds equal and regular. denies any other s/sx. denies injury/trauma. PMH:DM, ANXIETY RX:OMEPRAZOLE, METFORMIN, LEXAPRO
[2020-07-04 02:21] VITALS: BP 159/71
--- NOTE | 2020-07-04 03:14 | NUR ---
Dr. Collins examining patient.
[2020-07-04] MEDS ORDERED: ONDANSETRON 4 MG ODT PO ONE (03:20)
[2020-07-04] MEDS ORDERED: KETOROLAC 60 MG/2 ML VIAL IM ONE (03:20)
--- NOTE | 2020-07-04 04:21 | NUR ---
Patient discharged with v/s stable. Written and verbal after care instructions given and explained. Patient alert, oriented and verbalized understanding of instructions. Ambulatory with steady gait. All questions addressed prior to discharge. ID band removed. Patient advised to follow up with PMD. Rx of zofran, motrin and cipro given. Patient educated on indication of medication including possible reaction and side effects. Opportunity to ask questions provided and answered.
== END 2020-07-04 04:21 | disposition home or self-care (01) ==
LOC: MED 02:09
DX: N39.0 Urinary tract infection, site not specified (principal); R19.7 Diarrhea, unspecified; R11.10 Vomiting, unspecified; E11.9 Type 2 diabetes mellitus without complications; Z79.899 Other long term (current) drug therapy
CPT/HCPCS: 81002; 81025; 82948; 87086; 87186; 96372; 99283; J1885; Q0162

== ENCOUNTER 2021-02-06 16:20 | Emergency (ER) | payer BC, OTHER ==
[~2021-02-06] VITALS: Ht 162.6 cm; Wt 81.6 kg
[2021-02-06 16:23] VITALS: BP 137/72
[2021-02-06] MEDS ORDERED: KETOROLAC 60 MG/2 ML VIAL IM ONE (16:50)
--- NOTE | 2021-02-06 17:30 | NUR ---
65 Y/O M BIB SELF FROM HOME, PATIENT PRESENTS TO ED WITH CHEST PAIN AND LIGHTHEADED. PT STATES PAIN IS 5/10 TIGHTNESS IN CHEST. DENIES N/V/D; SKIN IS PINK/WARM/DRY; AAOX4 WITH EVEN AND STEADY GAIT; LUNGS CLEAR BL; HR EVEN AND SLIGHTLY NIGHAT (54 PULSE); PT DENIES ANY FEVER, SOB, OR COUGH AT THIS TIME; PATIENT STATES PAIN OF 5/10 AT THIS TIME; VSS; PATIENT POSITIONED FOR COMFORT; HOB ELEVATED; BEDRAILS UP X2; BED DOWN. ER MD MADE AWARE OF PT STATUS. PMH: GASTRITIS, DM2 NKA MED: NONE
[2021-02-06] MEDS ORDERED: ONDA8TAB87 PO (17:39)
[2021-02-06] MEDS ORDERED: IBUP-2213 PO (17:39)
[2021-02-06 17:52] VITALS: BP 134/77
--- NOTE | 2021-02-06 17:53 | NUR ---
Patient discharged with v/s stable. Written and verbal after care instructions given and explained. Patient alert, oriented and verbalized understanding of instructions. Ambulatory with steady gait. All questions addressed prior to discharge. ID band removed. Patient advised to follow up with PMD. Rx of Ibuprofen and Zofran given. Patient educated on indication of medication including possible reaction and side effects. Opportunity to ask questions provided and answered.
== END 2021-02-06 17:53 | disposition home or self-care (01) ==
LOC: MED 16:20
DX: R07.9 Chest pain, unspecified (principal); M54.5 Low back pain; R11.2 Nausea with vomiting, unspecified; R10.9 Unspecified abdominal pain; E11.9 Type 2 diabetes mellitus without complications
CPT/HCPCS: 81002; 93005; 96372; 99283; J1885

== ENCOUNTER 2021-08-04 13:50 | Emergency (ER) | payer OTHER, BC ==
[~2021-08-04] VITALS: Ht 162.6 cm; Wt 84.4 kg
[~2021-08-04 13:50] MED LIST changes: +IBUP-2213 PO; -IBUPROFEN PRN; +ONDA8TAB87 PO
[2021-08-04 14:12] VITALS: BP 154/84
--- NOTE | 2021-08-04 14:19 | NUR ---
PT IN LOBBY
--- NOTE | 2021-08-04 14:25 | NUR ---
65 y/o F BIB self from home c/o neck pain x 1.5 weeks, generalized weakness, facial numbness and UTi symptoms x 2 weeks. Patient A&Ox4, ambulatory, states for UTI and prescribed ABX which she is taking right now. Patient reports urinary frequency and dysuria, reports chronic UTI hx. patient denies N/V/D, fever, chills. Reports neck pain 8/10, pressure/intermittent, radiating to jaw. Patient also reports chest pressure x 1 week, 2/10, pressure/intermittent, non-radiating. Denies any medications for pain today. UA and gown in place. Bed locked in lowest position, side rails x 1. Bowel sounds normoactiev x 4 quadrants; last BM: today this morning normal. PMH: Pre-DM Meds: ABX NKA
--- NOTE | 2021-08-04 15:03 | NUR ---
Pt ambulated to restroom with steady/even gait.
--- NOTE | 2021-08-04 15:27 | NUR ---
ANNEALER HELPER AT PT BEDSIDE.
[2021-08-04] MEDS ORDERED: NACL 0.9% 1,000 ML IV ONE (15:30)
--- NOTE | 2021-08-04 15:34 | NUR ---
STAVE LOG CUT OFF SAW OPERATOR AT PT BEDSIDE.
--- NOTE | 2021-08-04 15:36 | NUR ---
PER ERMD 12 LEAD WAS DONE ON PT AND CAME BACK NSR AT 68 HR.
[2021-08-04 15:47] LABS: BASOPHILS # (AUTO) 0.1 K/uL (0.00-0.22); BASOPHILS % (AUTO) 1.1 % (0.0-2.0); EOSINOPHILS # (AUTO) 0.2 K/uL (0-0.4); EOSINOPHILS % (AUTO) 2.6 % (0.0-4.0); HEMATOCRIT 38.4 % (36-48); HEMOGLOBIN 12.9 g/dL (12.0-16.0); LYMPHOCYTES % (AUTO) 33.6 % (20.5-51.1); MEAN CORPUSCULAR HEMOGLOBIN 30 pg (27-31); MEAN CORPUSCULAR HGB CONC 34 g/dL (33-37); MEAN CORPUSCULAR VOLUME 88.5 fL (80-94); MONOCYTES # (AUTO) 0.5 K/uL (0.8-1.0); NEUTROPHILS # (AUTO) 3.2 K/uL (1.8-7.7); NEUTROPHILS % (AUTO) 53.7 % (42.2-75.2); PLATELET COUNT (AUTO) 234 K/uL (140-450); RED BLOOD CELL COUNT(AUTO) 4.34 MIL/uL (4.20-5.40); RED CELL DISTRIBUTION WIDTH 13.7 % (11.6-13.7)
[2021-08-04 16:00] LABS: APPEARANCE,URINE CLEAR (CLEAR); BILIRUBIN,URINE NEGATIVE (NEGATIVE); BLOOD, URINE NEGATIVE (NEGATIVE); COLOR,URINE YELLOW (YELLOW); LEUKOCYTE ESTERASE ,URINE NEGATIVE (NEGATIVE); NITRITE, URINE NEGATIVE (NEGATIVE); PH,URINE 6.5 (5.0-9.0); UGLUCOSE NEGATIVE (NEGATIVE)
[2021-08-04 16:01] LABS: ALBUMIN 3.9 g/dL (3.4-5.0); CARBON DIOXIDE 28.6 mmol/L (21-32); CREATININE 0.6 mg/dL (0.6-1.3); POTASSIUM 3.6 mmol/L (3.5-5.1); TOTAL BILIRUBIN 0.4 mg/dL (0.0-1.0)
--- NOTE | 2021-08-04 16:02 | NUR ---
PT RESTING, EYES CLOSED, VISIBLE EQUAL RISE AND FALL OF CHEST, VSS, WILL CONTINUE TO MONITOR.
[2021-08-04] MEDS ORDERED: NAPR-54 PO (16:31)
--- NOTE | 2021-08-04 16:44 | NUR ---
Patient ambulated to restroom to void.
[2021-08-04] MEDS ORDERED: KETOROLAC 30 MG/ML VIAL IVP ONE (17:00)
[2021-08-04 17:10] VITALS: BP 134/63
== END 2021-08-04 17:10 | disposition home or self-care (01) ==
LOC: MED 13:50
DX: R07.9 Chest pain, unspecified (principal); M79.10 Myalgia, unspecified site; R53.1 Weakness; R53.83 Other fatigue; E11.9 Type 2 diabetes mellitus without complications; Z79.899 Other long term (current) drug therapy
CPT/HCPCS: 36415; 71045; 80053; 81003; 83690; 84484; 85025; 96360; 99284; J7030; Q0092; 81002

== ENCOUNTER 2021-10-31 08:18 | Emergency (ER) | payer OTHER, BC ==
[~2021-10-31] VITALS: Ht 167.6 cm; Wt 81.6 kg
[~2021-10-31 08:18] MED LIST changes: +NAPR-54 PO
[2021-10-31 08:19] VITALS: BP 130/99
[2021-10-31] MEDS ORDERED: NAPR-54 PO (11:40)
[2021-10-31] MEDS ORDERED: CYCL-711 PO (11:40)
[2021-10-31 12:04] VITALS: BP 130/99
--- NOTE | 2021-10-31 12:04 | NUR ---
Patient discharged with v/s stable. Written and verbal after care instructions given CHEST WALL PAIN and explained. Patient alert, oriented and verbalized understanding of instructions. Ambulatory with steady gait. All questions addressed prior to discharge. ID band removed. Patient advised to follow up with PMD. Rx of FLEXERIL AND NAPROXEN given. Patient educated on indication of medication including possible reaction and side effects. Opportunity to ask questions provided and answered.
== END 2021-10-31 12:19 | disposition home or self-care (01) ==
LOC: MED 08:18
DX: R07.89 Other chest pain (principal); M79.18 Myalgia, other site; R10.30 Lower abdominal pain, unspecified; J44.9 Chronic obstructive pulmonary disease, unspecified; E78.00 Pure hypercholesterolemia, unspecified; F41.9 Anxiety disorder, unspecified; Z90.710 Acquired absence of both cervix and uterus; Z98.890 Other specified postprocedural states; Z79.899 Other long term (current) drug therapy; Z79.1 Long term (current) use of non-steroidal anti-inflammatories (NSAID)
CPT/HCPCS: 71045; 81002; 93005; 99283

== ENCOUNTER 2022-08-27 14:45 | Emergency (ER) | payer BC, OTHER ==
[~2022-08-27] VITALS: Ht 165.1 cm; Wt 83.9 kg
[~2022-08-27 14:45] MED LIST changes: +CYCL-711 PO
[2022-08-27 14:50] VITALS: BP 131/71
[2022-08-27 16:27] LABS: BASOPHILS # (AUTO) 0.1 K/uL (0.00-0.22); BASOPHILS % (AUTO) 0.7 % (0.0-2.0); EOSINOPHILS # (AUTO) 0.2 K/uL (0-0.4); EOSINOPHILS % (AUTO) 1.8 % (0.0-4.0); HEMOGLOBIN 13.9 g/dL (12.0-16.0); LYMPHOCYTES # (AUTO) 3.1 K/uL (2.5-16.5); LYMPHOCYTES % (AUTO) 34.9 % (20.5-51.1); MEAN CORPUSCULAR HEMOGLOBIN 30 pg (27-31); MEAN CORPUSCULAR HGB CONC 35 g/dL (33-37); MEAN CORPUSCULAR VOLUME 87.6 fL (80-94); MONOCYTES # (AUTO) 0.6 K/uL (0.8-1.0); MONOCYTES % (AUTO) 7.1 % (1.7-9.3); NEUTROPHILS % (AUTO) 55.5 % (42.2-75.2); PLATELET COUNT (AUTO) 247 K/uL (140-450); RED BLOOD CELL COUNT(AUTO) 4.57 MIL/uL (4.20-5.40); RED CELL DISTRIBUTION WIDTH 13.9 % (11.6-13.7)
--- NOTE | 2022-08-27 16:48 | NUR ---
PT AMBULATED TO ROOM 8
--- NOTE | 2022-08-27 16:50 | NUR ---
XRAY AT BEDSIDE
--- NOTE | 2022-08-27 16:56 | NUR ---
SIN AT BEDSIDE FOR EVALUATION
[2022-08-27 16:58] LABS: ANION GAP 13.2 (8-16); CARBON DIOXIDE 26.9 mmol/L (21-32); CREATININE 0.5 mg/dL (0.6-1.3); POTASSIUM 4.1 mmol/L (3.5-5.1); TOTAL BILIRUBIN 0.3 mg/dL (0.0-1.0)
[2022-08-27 16:59] LABS: PROTHROMBIN TIME 10.5 secs (10.8-13.4)
[2022-08-27] MEDS ORDERED: DICYCLOMINE HCL LIQUID 20 MG, ALUMINUM HYD/MAG/SIMETHICONE 30 ML, LIDOCAINE VISCOUS 2% ... PO ONE ×3 (17:00)
[2022-08-27] MEDS ORDERED: FAMOTIDINE 20 MG TAB PO ONE (17:00)
[2022-08-27] MEDS ORDERED: KETOROLAC 30 MG/ML VIAL IM ONE (17:00)
--- NOTE | 2022-08-27 17:00 | NUR ---
66YO FEMALE PT C/O INTERMITTENT SHARP 7/10 CHEST PAIN [id number]. STATES RADIATION TO MID BACK W/ 1-2HR DURATION. MILD RELIEF AFTER TAKING IBUPROFEN. NOTES BURNING EPIGATRIC DISCOMFORT AND NAUSEA. ABDOMEN NON TENDER OR DISTENED. DENIES V/D, SOB, FEVER OR CHILLS. PT AAOX4, NO VISIBLE DISTRESS. ON TOLL SERVICE OBSERVER, BED AT LOWEST POSITION. BED RAILS UPX2. HX:HLD, HTN, PREDIABETES NKA
[2022-08-27] MEDS ORDERED: ALUMINUM HYD/MAG/SIMETHICONE 30 ML UDC ONE (17:11)
[2022-08-27] MEDS ORDERED: DICYCLOMINE HCL LIQUID 10 MG/5 ML UDC ONE (17:12)
[2022-08-27] MEDS ORDERED: BISM262C53 PO (18:05)
[2022-08-27] MEDS ORDERED: BEN10 PO (18:05)
[2022-08-27] MEDS ORDERED: OMEP40EC23 PO (18:05)
[2022-08-27 18:16] VITALS: BP 132/67
--- NOTE | 2022-08-27 18:16 | NUR ---
Patient discharged with v/s stable. Written and verbal after care instructions FOR GERD AND FOOD CHOICES FOR GERD given and explained. Patient alert, oriented and verbalized understanding of instructions. Ambulatory with steady gait. All questions addressed prior to discharge. ID band removed. Patient advised to follow up with PMD. Rx of BENTYL, PEPTO AND PRILOSEC given.Opportunity to ask questions provided and answered.
--- NOTE | 2022-08-27 18:21 | NUR ---
The patient's care was reviewed and supervised by ED Agency Nurse 9, RN, RN.
== END 2022-08-27 18:16 | disposition home or self-care (01) ==
LOC: MED 14:45
DX: K21.9 Gastro-esophageal reflux disease without esophagitis (principal); I10 Essential (primary) hypertension; J44.9 Chronic obstructive pulmonary disease, unspecified; E11.9 Type 2 diabetes mellitus without complications; Z79.899 Other long term (current) drug therapy
CPT/HCPCS: 36415; 71045; 80053; 83880; 84484; 85025; 85379; 85610; 85730; 93005; 96372; 99285; J1885; Q0092

== ENCOUNTER 2024-01-30 14:01 | Emergency (ER) | payer OTHER ==
[~2024-01-30] VITALS: Ht 162.6 cm; Wt 86.2 kg
[~2024-01-30 14:01] MED LIST changes: +BEN10 PO; +BISM262C53 PO; +OMEP40EC23 PO
[2024-01-30 14:13] VITALS: BP 155/84; PULSE 67; RESP 18; TEMP 98.1; O2SAT 99
[2024-01-30 15:12] LABS: BASOPHILS # (AUTO) 0.1 K/uL (0.00-0.22); BASOPHILS % (AUTO) 1.2 % (0.0-2.0); EOSINOPHILS # (AUTO) 0.1 K/uL (0-0.4); EOSINOPHILS % (AUTO) 1.8 % (0.0-4.0); HEMATOCRIT 38.3 % (36-48); HEMOGLOBIN 13.2 g/dL (12.0-16.0); LYMPHOCYTES # (AUTO) 1.9 K/uL (2.5-16.5); LYMPHOCYTES % (AUTO) 27.8 % (20.5-51.1); MEAN CORPUSCULAR HEMOGLOBIN 30 pg (27-31); MEAN CORPUSCULAR HGB CONC 34 g/dL (33-37); MONOCYTES # (AUTO) 0.5 K/uL (0.8-1.0); MONOCYTES % (AUTO) 6.8 % (1.7-9.3); NEUTROPHILS # (AUTO) 4.3 K/uL (1.8-7.7); NEUTROPHILS % (AUTO) 62.4 % (42.2-75.2); PLATELET COUNT (AUTO) 249 K/uL (140-450); RED BLOOD CELL COUNT(AUTO) 4.46 MIL/uL (4.20-5.40); RED CELL DISTRIBUTION WIDTH 13.5 % (11.6-13.7); WHITE BLOOD COUNT (AUTO) 6.9 K/uL (4.8-10.8)
[2024-01-30 15:20] LABS: BILIRUBIN,URINE NEGATIVE (NEGATIVE); BLOOD, URINE NEGATIVE (NEGATIVE); COLOR,URINE YELLOW (YELLOW); LEUKOCYTE ESTERASE ,URINE NEGATIVE (NEGATIVE); NITRITE, URINE POSITIVE (NEGATIVE); PH,URINE 7.5 (5.0-9.0); PROTEIN,URINE NEGATIVE (NEGATIVE); UGLUCOSE NEGATIVE (NEGATIVE); UROBILINOGEN,URINE 0.2 EU/dL (0.2 - 1)
[2024-01-30 15:22] LABS: APPEARANCE,URINE SLIGHTLY HAZY (CLEAR)
[2024-01-30 15:24] LABS: RBC,URINE 0 /HPF (0-5); WBC,URINE 0-5 /HPF (0-5)
[2024-01-30 15:25] LABS: BILIRUBIN,DIRECT 0.1 mg/dL (0.0-0.3); TOTAL BILIRUBIN 0.5 mg/dL (0.0-1.0); TOTAL PROTEIN, SERUM 6.9 g/dL (6.4-8.2)
[2024-01-30 15:25] LABS: BACTERIA,URINE 3+ /HPF (None Seen); MUCUS,URINE None Seen /LPF (None Seen); SQUAMOUS EPITHELIAL CELL,UR 0-3 (FEW) /LPF (0-3 (FEW))
[2024-01-30 15:35] LABS: ANION GAP 13.4 (8-16); CALCIUM 8.7 mg/dL (8.5-10.1); CARBON DIOXIDE 28.7 mmol/L (21-32); CREATININE 0.6 mg/dL (0.6-1.3); POTASSIUM 4.1 mmol/L (3.5-5.1)
[2024-01-30] MEDS ORDERED: CEPH-588 PO (15:43)
[2024-01-30] MEDS ORDERED: PYR100 PO (15:43)
[2024-01-30 15:49] VITALS: BP 144/77; PULSE 71; RESP 16; TEMP 97.5; O2SAT 98
== END 2024-01-30 15:49 | disposition home or self-care (01) ==
LOC: MED 14:01
DX: N39.0 Urinary tract infection, site not specified (principal); J44.9 Chronic obstructive pulmonary disease, unspecified; E11.9 Type 2 diabetes mellitus without complications; I10 Essential (primary) hypertension; Z79.1 Long term (current) use of non-steroidal anti-inflammatories (NSAID); Z79.899 Other long term (current) drug therapy
CPT/HCPCS: 36415; 80048; 80076; 81001; 83690; 85025; 87086; 99283